=== PATIENT | male | born 1950 | race Caucasian/White ===

== ENCOUNTER 2023-04-01 13:27 | Observation (INO) ==
[2023-04-01] MEDS ORDERED: Nitroglycerin 0.4 mg/hr PATCH (10 mg) TRANSDERM ONE (13:34)
[2023-04-01 14:01] LABS: ABS Basophils 0.1 10^3/uL (0.0-0.1); ABS Eosinophils 0.1 10^3/uL (0.0-0.5); ABS Lymphocytes 1.6 10^3/uL (1.0-4.8); ABS Monocytes 0.7 10^3/uL (0.0-1.1); ABS Neutrophils 7.4 10^3/uL (1.5-7.6); Eosinophil % 0.9 %; Hematocrit 41.5 % (38-53); Hemoglobin 14.1 g/dL (13.2-16.3); Lymphocyte % 16.4 %; Mean Corpuscular Hemoglobin 30.7 pg (27-33); Mean Corpuscular Hgb Conc 33.9 g/dL (31-36); Mean Corpuscular Volume 90.6 fL (80-97); Mean Platelet Volume 7.4 fL (7.5-11.2); Platelet Count 226 10^3/uL (150-450); Red Blood Count 4.58 10^6/uL (4.06-5.63); Red Cell Distribution Width 14.1 % (12-17); White Blood Count 9.9 10^3/uL (3.6-10.2)
[2023-04-01 14:23] LABS: Albumin 3.5 g/dL (3.2-5.2); Albumin/Globulin Ratio 1.5 (1-3); Calcium 8.2 mg/dL (8.6-10.3); Creatinine, Serum 0.58 mg/dL (0.67-1.17); Globulin 2.4 g/dL (2-4); Total Bilirubin 0.5 mg/dL (0.2-1.0); Total Protein 5.9 g/dL (6.4-8.9); eGFR CKD-EPI 101.7 (>60)
[2023-04-01 16:33] LABS: High Sensitivity Troponin 1 Hr 8 pg/mL (<20)
[2023-04-01] MEDS ORDERED: Nicotine PATCH 14 MG/24 HR PATCH TRANSDERM ONE (17:27)
[2023-04-01] MEDS ORDERED: Enoxaparin 30 MG/0.3 ML SYR SUBCUT SCH ×2 (18:00→19:18)
[2023-04-01] MEDS ORDERED: Enoxaparin 40 MG/0.4 ML SYR SUBCUT SCH (22:00)
[2023-04-02 10:12] VITALS: BP 118/70
== END 2023-04-02 12:20 | disposition home or self-care (01) ==
LOC: EDHOLD 13:27 → ED 13:27 → MEDTELE 21:10
PROVIDERS: ADMIT Internal Medicine; ATTEND Internal Medicine